=== PATIENT | female | born 1980 | race Caucasian/White ===

== ENCOUNTER 2017-10-01 13:07 | Emergency (ER) | END 2017-10-01 17:18 | disposition home or self-care (01) ==

== ENCOUNTER 2017-10-03 09:23 | Emergency (ER) | END 2017-10-03 11:11 | disposition home or self-care (01) ==

== ENCOUNTER 2019-05-16 14:37 | Outpatient (CLI) | payer MEDICAID ==
[~2019-05-16] VITALS: Ht 154.9 cm; Wt 74.8 kg
[~2019-05-16 14:37] MED LIST: TYL500 PO
[2019-05-16 16:48] VITALS: BP 123/80; PULSE 65; RESP 18; Ht 154.9 cm; Wt 74.8 kg
== END 2019-05-16 19:30 | disposition home or self-care (01) ==
LOC: OBT 14:37 → L-D 16:36 → OBT 19:30
PROVIDERS: ATTEND Obstetrics & Gynecology
DX: O36.5930 Maternal care for other known or suspected poor fetal growth, third trimester, not applicable or unspecified (principal); Z3A.36 36 weeks gestation of pregnancy
CPT/HCPCS: 76815; 76817; 76818; G0463